=== PATIENT | female | born 1965 | race Caucasian/White ===

== ENCOUNTER 2019-01-16 11:55 | Emergency (ER) | payer MEDICAID ==
[~2019-01-16] VITALS: Ht 157.5 cm; Wt 74.1 kg
[2019-01-16 12:23] VITALS: BP 144/83
[2019-01-16] MEDS ORDERED: HYDROcodone/APAP 5/325 TABLET ONE (12:38)
[2019-01-16] MEDS ORDERED: HYDROcodone/APAP 5/325 TABLET PO ONE (13:00)
--- NOTE | 2019-01-16 13:34 | NUR ---
Sling applied to right upper extremity, patient tolerated well. Discharge instructions discussed with patient including when to return to emergency department, verbalizes understanding. Patient ambulates with steady gait to discharge desk in no acute distress.
== END 2019-01-16 13:36 | disposition home or self-care (01) ==
LOC: ED 13:18
DX: M75.21 Bicipital tendinitis, right shoulder (principal); M19.90 Unspecified osteoarthritis, unspecified site
CPT/HCPCS: 99283

== ENCOUNTER 2021-05-07 19:33 | Emergency (ER) | payer MEDICAID ==
[~2021-05-07] VITALS: Ht 154.9 cm; Wt 81.8 kg
--- NOTE | 2021-05-07 20:48 | NUR ---
PT PRESENTS TO ER FOR SOB THAT STARTED AFTER TAKING HYDROXYZINE (1800), PTS RESPIRATIONS NOT LABORED, O2 SATURATION AT 97% ON ROOM AIR, NAD AT THIS TIME
--- NOTE | 2021-05-07 21:32 | NUR ---
PT LAYING IN BED, A/OX4, ALL NEEDS IN REACH, CALL LIGHT IN REACH, NAD AT THIS TIME, VSS
[2021-05-07 22:08] VITALS: BP 136/75
== END 2021-05-07 22:10 | disposition home or self-care (01) ==
LOC: ED 22:08
DX: R06.00 Dyspnea, unspecified (principal); F41.1 Generalized anxiety disorder; E78.5 Hyperlipidemia, unspecified; M19.90 Unspecified osteoarthritis, unspecified site
CPT/HCPCS: 71045; 93005; 99283

== ENCOUNTER 2021-06-05 20:06 | Emergency (ER) | payer MEDICAID ==
[~2021-06-05] VITALS: Ht 154.9 cm; Wt 72.7 kg
--- NOTE | 2021-06-05 20:15 | NUR ---
PT REPORTS HEADACHE HAS IMPROVED ON ITS OWN FROM 07/18 TO 04/17. STATES SHE WAS RECENTLY HERE FOR SOB AND LAB WORK AND CXR WAS DONE. Addendum: 06/05/21 at 2017 by LANDON KT JAMES AT NOW.
[2021-06-05] MEDS ORDERED: PROCHLORPERAZINE 5 MG/ML, 2ML IM ONE (20:30)
[2021-06-05] MEDS ORDERED: KETOROLAC 30 MG/1 ML IM ONE (20:30)
[2021-06-05] MEDS ORDERED: DIPHENHYDRAMINE 25 MG CAPSULE PO ONE (20:30)
[2021-06-05] MEDS ORDERED: PROCHLORPERAZINE 5 MG/ML, 2ML ONE (20:41)
[2021-06-05] MEDS ORDERED: DIPHENHYDRAMINE 50 MG CAPSULE ONE (20:41)
[2021-06-05] MEDS ORDERED: KETOROLAC 30 MG/1 ML ONE (20:41)
[2021-06-05] MEDS ORDERED: ATOR40TA78 PO (20:53)
--- NOTE | 2021-06-05 21:05 | NUR ---
RECEIVED REPORT FROM VILMA LOUIS TO ASSUME CARE OF PT.
--- NOTE | 2021-06-05 21:23 | NUR ---
ERIKA WILKS IN ROOM FOR RECHECK.
[2021-06-05 21:42] VITALS: BP 114/57
== END 2021-06-05 21:45 | disposition home or self-care (01) ==
LOC: ED 21:12
DX: G44.209 Tension-type headache, unspecified, not intractable (principal); E78.5 Hyperlipidemia, unspecified; M19.90 Unspecified osteoarthritis, unspecified site
CPT/HCPCS: 96372; 99284; J0780; J1885; Q0163

== ENCOUNTER 2021-06-21 08:07 | Emergency (ER) | payer MEDICAID ==
[~2021-06-21] VITALS: Ht 154.9 cm; Wt 74.0 kg
[~2021-06-21 08:07] MED LIST: ATOR40TA78 PO
[2021-06-21 08:10] VITALS: BP 112/58
== END 2021-06-21 08:47 | disposition home or self-care (01) ==
LOC: ED 08:41
DX: F41.1 Generalized anxiety disorder (principal); R94.31 Abnormal electrocardiogram [ECG] [EKG]; E78.5 Hyperlipidemia, unspecified
CPT/HCPCS: 93005; 99283

== ENCOUNTER 2021-06-22 06:37 | Emergency (ER) | payer MEDICAID ==
[~2021-06-22] VITALS: Ht 162.6 cm; Wt 64.0 kg
[2021-06-22 07:16] VITALS: BP 136/70
== END 2021-06-22 07:22 | disposition home or self-care (01) ==
LOC: ED 07:09
DX: F41.1 Generalized anxiety disorder (principal)
CPT/HCPCS: 99283

== ENCOUNTER 2021-06-24 02:59 | Emergency (ER) | payer MEDICAID ==
[~2021-06-24] VITALS: Ht 156.2 cm; Wt 72.5 kg
--- NOTE | 2021-06-24 03:00 | NUR ---
pt states she has been feeling sob for "a while now". denies any other symptoms just states "im just feeling short of breath" as well has increased anxiety about neighbors. states being seen here multiple times for the same. pt placed on monitors, awaiting erp eval
[2021-06-24 04:06] VITALS: BP 167/92
== END 2021-06-24 04:30 | disposition home or self-care (01) ==
LOC: ED 03:24
DX: F41.1 Generalized anxiety disorder (principal); R06.02 Shortness of breath; R94.31 Abnormal electrocardiogram [ECG] [EKG]; E78.5 Hyperlipidemia, unspecified; M19.90 Unspecified osteoarthritis, unspecified site
CPT/HCPCS: 93005; 99283; Q0177